=== PATIENT | male | born 1970 | race Two or more races ===

== ENCOUNTER → 2018-04-17 | Emergency (ER) | payer OTHER ==
[~2018-04-17] VITALS: Ht 182.9 cm; Wt 119.7 kg
[~2018-04-17] MED LIST: CYCLOBENZAPRINE10 MG PO; JANUMET 50-5001 EACH; KETO10TA2 PO; LOSARTAN-HCTZ1 EAC2; ORPHENADRINE C100 MG PO
== END | disposition home or self-care (01) ==
LOC: ER 22:46
DX: M62.838 Other muscle spasm (principal)